=== PATIENT | female | born 1965 | race Caucasian/White ===

== ENCOUNTER → 2016-04-03 | Outpatient (CLI) | payer BC ==
[~2016-04-03] MED LIST: BUPR-79 PO; CLIN1GEL; CYAN500T13 PO; MULT-513 PO; TRET0.023
--- NOTE | 2016-04-03 11:57 | DIAGNOSTIC IMAGING REPORT ---
THYROID ULTRASOUND HISTORY: Throat discomfort. Right-sided thyroid enlargement COMPARISON: None. FINDINGS: Right lobe: 5.4 x 1.5 x 1.3 cm. A 3 mm hypoechoic nodule within the upper pole. Left lobe: 5.0 x 1.5 x 1.2 cm. No nodules. Isthmus: 3 mm in thickness. No nodules. IMPRESSION: A 3 mm hypoechoic nodule within the upper pole of the right lower lobe. This does not meet criteria for biopsy. Otherwise, normal thyroid ultrasound. Electronically signed by: Valeriy Callaway M.D. 04/03/2016 11:55 AM Dictated Date/Time: 04/03/2016 11:54 AM
== END | disposition home or self-care (01) ==
LOC: C.ULTR 10:57
PROVIDERS: ATTEND Nurse Practitioner
DX: E01.2 Iodine-deficiency related (endemic) goiter, unspecified (principal)

== ENCOUNTER → 2017-01-30 | Outpatient (CLI) | payer BC ==
[2017-01-31 15:40] LABS: MICROSOMAL AB <1 IU/ML (<9)
== END | disposition home or self-care (01) ==
LOC: C.LAB 08:05
PROVIDERS: ATTEND Nurse Practitioner
DX: E05.90 Thyrotoxicosis, unspecified without thyrotoxic crisis or storm (principal); E55.9 Vitamin D deficiency, unspecified